=== PATIENT | male | born 1970 | race Caucasian/White ===

== ENCOUNTER 2020-11-08 11:27 | Emergency (ER) | payer OTHER ==
[~2020-11-08] VITALS: Ht 182.9 cm; Wt 98.2 kg
[2020-11-08 11:36] VITALS: BP 188/108
[2020-11-08] MEDS ORDERED: AMOX1TAB61 PO (12:26)
[2020-11-08] MEDS ORDERED: FLUT9.9S NS (12:26)
--- NOTE | 2020-11-08 12:29 | PHYS DOC ---
Past History Past Surgical History: No Surgical History General Adult EDM: Chief Complaint: FACE PAIN HPI: HPI: Patient is a 42-year-old male being seen in the ER for maxillary sinus pain. Patient was diagnosed with a sinus infection on Sunday. He was discharged home with cefdinir and prednisone. He states that he has been taking that as directed along with ibuprofen and Tylenol without any relief in his symptoms. Patient rates pain 4 out of 10. It is worse when he lays flat. He states it is impacting his sleep. Patient denies any difficulty breathing or swallowing, fevers. Review of Systems: Review of Systems: 14 body systems of the review of systems have been reviewed. See HPI for pertinent positive and negative responses, otherwise all other systems are negative, nonpertinent or noncontributory Physical Exam: PE: Constitutional: Well developed, well nourished, no acute distress, non-toxic appearance. [] HENT: Normocephalic, atraumatic, bilateral external ears normal, oropharynx moist, no oral exudates, clear nasal drainage, left sinus swelling, left maxillary sinus tenderness with palpation nose normal. [] Eyes: PERRL, EOMI, conjunctiva normal, no discharge. [] Neck: Normal range of motion, no stridor Cardiovascular:Heart rate regular rhythm, no murmur [] Lungs & Thorax: Bilateral breath sounds clear to auscultation [] Abdomen: Bowel sounds normal, soft, no tenderness, no masses, no pulsatile masses. [] Skin: Warm, dry, no erythema, no rash. [] Back: Normal range of motion Extremities: No tenderness, no cyanosis, no clubbing, ROM intact, no edema. [] Neurologic: Alert and oriented X 3, normal motor function, normal sensory function, no focal deficits noted. [] Psychologic: Affect normal, judgement normal, mood normal. [] Current Patient Data: Vital Signs: Vital Signs Date Time Temp Pulse Resp B/P (MAP) Pulse Ox O2 Delivery O2 Flow Rate FiO2 11/08/20 11:36 98.7 82 16 188/108 97 EKG: EKG: [] Radiology/Procedures: Radiology/Procedures: [] Heart Score: C/O Chest Pain: No Risk Factors: Risk Factors: DM, Current or recent (<one month) smoker, HTN, HLP, family history of CAD, obesity. Risk Scores: Score 0 - 3: 2.5% MACE over next 6 weeks - Discharge Home Score 4 - 6: 20.3% MACE over next 6 weeks - Admit for Clinical Observation Score 7 - 10: 72.7% MACE over next 6 weeks - Early Invasive Strategies Course & Med Decision Making: Course & Med Decision Making Pertinent Labs and Imaging studies reviewed. (See chart for details) [] Patient is a 50-year-old male being seen in the ER for sinus pain. Patient was diagnosed with a sinus infection on Sunday and discharged with cefdinir and prednisone. He reports that he has been taking his medications as directed but has seen no improvement in his facial pain. Patient has been taking ibuprofen and Tylenol. Patient rates pain 4-10. He states it is worse when he lays flat. He states that it is impacting his sleep. Patient denies any fevers, difficulty breathing or shortness of breath. Patient blood pressure was elevated in the ER he has been diagnosed with whitecoat hypertension. Patient told to continue the prednisone discontinue the cefdinir. Patient discharged h ome with Augmentin and Flonase. Patient vies follow-up with his primary care provider. I discussed with patient all findings as well as the need to follow- up with PCP for further evaluation and treatment or return to the ER if any new or worsening symptoms. Strict return precautions were also discussed at length. Patient voiced understanding and agreement with the plan. Patient is hemodynamically stable at the time of disposition. Qasim Disclaimer: Qasim Disclaimer: This electronic medical record was generated, in whole or in part, using a voice recognition dictation system. Departure Departure: Impression: Primary Impression: Sinusitis Qualified Codes: J01.00 - Acute maxillary sinusitis, unspecified Disposition: HOME / SELF CARE / HOMELESS Condition: GOOD Referrals: PCP,UNKNOWN (PCP) Patient Instructions: Sinusitis Additional Instructions: You are seen in the ER for sinusitis. Please discontinue the cefdinir and start the new antibiotic. Continue taking the prednisone as directed. You were given a prescription for Flonase. Please use this as directed. This intranasal steroid may improve the inflammation of your sinuses. You can take Tylenol/ibuprofen for pain at home. Please follow-up with your primary care provider within the week if your symptoms do not improve. If you develop worsening of your pain, high fevers refractory to treatment, shortness of breath, intractable nausea or vomiting or any new or worsening concerns please return to the ER. EMERGENCY DEPARTMENT GENERAL DISCHARGE INSTRUCTIONS Thank you for coming to [facility] (ED) today and trusting us with you care. We trust that you had a positivie experience in our Emergency Department. If you wish to speak to the department management, you may call the director at [phone]. YOUR FOLLOW UP INSTRUCTIONS ARE FOLLOWS: 1. Do you have a private Doctor? If you do not have a private doctor, please ask for a resource list of physicians or clinics that may be able to assist you with follow up care. 2. The Emergency Physician has interpreted your x-rays. The X-Ray specialist will also review them. If there is a change in the findings, you will be notified in 48 hours when at all possible. 3. A lab test or culture has been done, your results will be reviewed and you will be notified if you need a change in treatment. ADDITIONAL INSTRUCTIONS AND INFORMATION: 1. Your care today has been supervised by a physician who is specially trained in emergency care. Many problems require more than one evaluation for a complete diagnosis and treatment. We recommend that you schedule your follow up appointment as recommended to ensure complete treatment of you illness or injury. If you are unable to obtain follow up care and continue to have a problem, or if your condition worsens, we recommend that you return to the ED. 2. We are not able to safely determine your condition over the phone nor are we able to give sound medical advice over the phone. For these safety reasons, if you call for medical advice we will ask you to come to the ED for further evaluation. 3. If you have any questions regarding these discharge instructions please call the ED at [phone]. SAFETY INFORMATION: In the interest of safety, wellness, and injury prevention; we encourage you to wear your sealbelt, if you smoke; quite smoking, and we encourage family to use a protective helmet for bicycling and other sporting events that present an increased risk for head injury. IF YOUR SYMPTOMS WORSEN OR NEW SYMPTOMS DEVELOP, OR YOU HAVE CONCERNS ABOUT YOUR CONDITION; OR IF YOUR CONDITION WORSENS WHILE YOU ARE WAITING FOR YOUR FOLLOW UP APPOINTMENT; EITHER CONTACT YOUR PRIMARY CARE DOCTOR, THE PHYSICIAN WHOSE NAME AND NUMBER YOU WERE GIVEN, OR RETURN TO THE ED IMMEDIATELY. Scripts Fluticasone Propionate (Flonase Allergy Relief) 9.9 Ml [place].susp 2 SPRAYS NS DAILY for nasal congestion for 14 Days, #1 BOTTLE 0 Refills Prov: DONELL MEZA APRN 11/08/20 Amoxicillin/Potassium Clav (AUGMENTIN 875-125 TABLET) 1 Each Tablet 1 TAB PO BID for sinusitis for 10 Days, #20 TAB 0 Refills Prov: DONELL MEZA APRN 11/08/20 DONELL MEZA APRN Nov 08, 2020 12:29
== END 2020-11-08 12:45 | disposition home or self-care (01) ==
LOC: ER 11:27
DX: J01.00 Acute maxillary sinusitis, unspecified (principal)
CPT/HCPCS: 99283